=== PATIENT | female | born 1985 | race Caucasian/White ===

== ENCOUNTER 2018-08-24 18:10 | Emergency (ER) | payer OTHER ==
[~2018-08-24] VITALS: Ht 157.4 cm; Wt 60.8 kg
[~2018-08-24 18:10] MED LIST: CATAFLAM50 MG PO; CLEOCIN HCL150 MG PO; CLINDAMYCIN HC300 MG PO; PREDNISONE20 MG PO; TRAMADOL HCL50 MG PO; VICODIN 5/500 505 MG PO; ZITHROMAX Z PA250 MG PO
[2018-08-24 18:29] LABS: BILIRUBIN NEGATIVE (NEGATIVE); BLOOD TRACE-INTACT (NEGATIVE); CLARITY SL CLOUDY (CLEAR); COLOR YELLOW (YELLOW); GLUCOSE NEGATIVE (NEGATIVE); KETONE NEGATIVE (NEGATIVE); LEUKO ESTERASE 1+ (NEGATIVE); NITRITE NEGATIVE (NEGATIVE); PH 5.5 (5.0-9.0); SPECIFIC GRAVITY 1.025 (1.005-1.030); UROBILINOGEN 0.2 E.U./dl (0.2-1.0)
[2018-08-24 18:37] LABS: BACTERIA 1+; WBC 21-30 wbc/hpf (0-5)
[2018-08-24] MEDS ORDERED: PYRIDIUM200 M1 PO (18:48)
[2018-08-24] MEDS ORDERED: CEFUROXIME AXE500 MG PO (18:48)
== END 2018-08-24 19:01 | disposition home or self-care (01) ==
LOC: ED 18:10
PROVIDERS: Nurse Practitioner Family
DX: N39.0 Urinary tract infection, site not specified (principal); Z88.0 Allergy status to penicillin; Z88.2 Allergy status to sulfonamides

== ENCOUNTER 2020-08-13 17:44 | Emergency (ER) | payer OTHER ==
[~2020-08-13] VITALS: Wt 59.0 kg
[~2020-08-13 17:44] MED LIST changes: +CEFUROXIME AXE500 MG PO; +PYRIDIUM200 M1 PO
[2020-08-13 18:36] LABS: BILIRUBIN Negative (Negative); BLOOD Negative (Negative); CLARITY Clear (Clear); COLOR Yellow (Yellow); GLUCOSE Negative (Negative); KETONE Negative (Negative); LEUKO ESTERASE 3+ (Negative); NITRITE Negative (Negative); PH 6.5 (4.5-8.0); SPECIFIC GRAVITY <= 1.005 (1.001-1.030); UROBILINOGEN 0.2 E.U./dl (0.0-1.0)
[2020-08-13 19:05] LABS: BACTERIA 1+; EPITHELIAL CELLS 16-20; WBC 31-40 wbc/hpf (0-5)
[2020-08-13] MEDS ORDERED: CEFUROXIME AXE500 MG PO (19:08)
== END 2020-08-13 19:10 | disposition home or self-care (01) ==
LOC: ED 17:44
PROVIDERS: Physician Assistant
DX: N39.0 Urinary tract infection, site not specified (principal); Z88.0 Allergy status to penicillin; Z88.8 Allergy status to other drugs, medicaments and biological substances; Z79.899 Other long term (current) drug therapy

== ENCOUNTER 2022-03-01 22:10 | Emergency (ER) | payer OTHER ==
[~2022-03-01] VITALS: Ht 157.4 cm; Wt 58.5 kg
== END 2022-03-01 23:37 | disposition home or self-care (01) ==
LOC: ED 22:10
DX: S05.01XA Injury of conjunctiva and corneal abrasion without foreign body, right eye, initial encounter (principal); Z88.0 Allergy status to penicillin; Z88.2 Allergy status to sulfonamides; Z98.51 Tubal ligation status; Z98.890 Other specified postprocedural states; X58.XXXA Exposure to other specified factors, initial encounter; Y93.89 Activity, other specified; Y92.89 Other specified places as the place of occurrence of the external cause; Y99.8 Other external cause status

== ENCOUNTER 2023-10-15 10:07 | Emergency (ER) | payer OTHER ==
[~2023-10-15] VITALS: Ht 165.1 cm; Wt 62.6 kg
[2023-10-15] MEDS ORDERED: AVPAK AZITHROM250 M1 PO (11:15)
== END 2023-10-15 11:18 | disposition home or self-care (01) ==
LOC: ED 10:07
DX: J40 Bronchitis, not specified as acute or chronic (principal); Z20.822 Contact with and (suspected) exposure to COVID-19; J32.9 Chronic sinusitis, unspecified; F17.290 Nicotine dependence, other tobacco product, uncomplicated; Z88.0 Allergy status to penicillin; Z88.8 Allergy status to other drugs, medicaments and biological substances; Z98.51 Tubal ligation status